=== PATIENT | male | born 1970 ===

== ENCOUNTER 2017-11-18 13:27 | Emergency (ER) | payer OTHER ==
[2017-11-18] MEDS ORDERED: LORazepam 2 MG/ML MDV IVPUSH ONE (14:10)
[2017-11-18] MEDS ORDERED: Dextrose 5%-0.9% NaCl 1,000 ML IV SCH (14:15)
--- NOTE | 2017-11-18 14:15 | EDM.PDOC ---
ED HPI GENERAL MEDICAL PROBLEM - General Source of Information: Reports: Patient History Limitations: Reports: No Limitations - History of Present Illness Onset: Today Onset Date: 11/18/17 Onset Time: 12:45 Duration: Minutes: (Reportedly the seizure lasted about 2 minutes. Again this is coming from the patient who has no recollection of what has happened to him.) Location: Reports: Generalized (Apparently expressed generalized tonic-clonic seizure activity.) Severity: Moderate Improves with: Reports: None Worsens with: Reports: None Context: Denies: Activity, Exercise, Lifting, Sick Contact, Trauma Associated Symptoms: Denies: No Other Symptoms, Confusion, Chest Pain, Cough, cough w sputum, Diaphoresis, Fever/Chills, Headaches, Loss of Appetite, Malaise , Nausea/Vomiting, Rash, Seizure, Shortness of Breath, Syncope Treatments [employer]EL[employer]: Reports: Other (see below) (None.) Right Shoulder Pain Score (Numeric/FACES): 5 - General Chief Complaint: Neuro Symptoms/Deficits Stated Complaint: [facility] Time Seen by Provider: 11/18/17 14:10 - History of Present Illness INITIAL COMMENTS - FREE TEXT/NARRATIVE: 47-year-old male presents to the ED per paramedics from [place]. Apparently he was in the workplace which she has been out for about 14 years when he suddenly fell to the floor and experienced what he was told as a grand mal convulsion that lasted about 2 minutes. Of course the patient has no recollection of what has happened to him. Ever had a seizure before. He states his right arm hurts in the proximal humerus area. He doesn't have any head or head pain. He has no neck back or rib pain. Denies any pain in his lower extremities. And states she' s been getting it good sleep. Takes no medications. He denies any alcohol or recreational drug use. He did bite his tongue and has a puncture wound to the central part of his tongue and spelled up blood for about an hour. Not lose control of his bowel or bladder. He is not known to be diabetic. He states he hasn't ate much today. Was to snack throughout the day when he is working. (Giovanni Grover) - Related Data Allergies Allergy/AdvReac Type Severity Reaction Status Date / Time ampicillin AdvReac Diarrhea Verified 11/19/17 10:26 Home Meds: Home Meds Fexofenadine/Pseudoephedrine [Nneka-D 24 Hour Tablet] 1 tab PO DAILY 11/18/17 [History] Past Medical History - Past Health History Medical/Surgical History: Denies Medical/Surgical History HEENT History: Reports: Sinusitis Social & Family History - Tobacco Use Smoking Status *Q: Never Smoker - Caffeine Use Caffeine Use: Reports: None - Recreational Drug Use Recreational Drug Use: No - Living Situation & Occupation Occupation: Employed ED ROS GENERAL - Review of Systems Review Of Systems: See Below Constitutional: Reports: Malaise, Weakness (Feels generally weak now.), Fatigue. Denies: Fever, Chills, Decreased Appetite, Weight Loss HEENT: Reports: Sinus Problem Respiratory: Reports: No Symptoms Cardiovascular: Reports: No Symptoms Endocrine: Reports: Fatigue GI/Abdominal: Reports: No Symptoms : Reports: No Symptoms Musculoskeletal: Reports: Other (Has pain in his right proximal humerus since experiencing the seizure. Believes) Skin: Reports: No Symptoms ( this where he may have hit the floor.) Neurological: Reports: Seizure (Apparently expansion new onset grand mal convulsion while at work today.) Hematologic/Lymphatic: Reports: No Symptoms Immunologic: Reports: No Symptoms - Physical Exam Exam: See Below Exam Limited By: Other (Speech is dysarthric from biting his tongue.) General Appearance: Alert, WD/WN, Anxious, Mild Distress Eye Exam: Bilateral Eye: Normal Inspection Throat/Mouth: Normal Inspection, Normal Lips, Normal Oropharynx, Evidence of Tongue Biting (He does have a puncture wound to the punch wound to the mid right side of his tongue with minimal active bleeding at present.) Head Exam: Atraumatic, Normocephalic. No: Facial Ecchymosis, Facial Swelling, Facial Tenderness Neck: Normal Inspection, Supple, Non-Tender, Full Range of Motion. No: Lymphadenopathy (L), Lymphadenopathy (R) Respiratory/Chest: No Respiratory Distress, Lungs Clear, Normal Breath Sounds, Chest Non-Tender Cardiovascular: Normal Peripheral Pulses, Regular Rate, Rhythm, No Edema, No Gallop, No Murmur, No Rub GI/Abdominal: Normal Bowel Sounds, Non-Tender, No Organomegaly, No Abnormal Bruit, No Mass, Pelvis Stable Neuro Exam (Abbreviated): Alert, Oriented, CN II-XII Intact, Normal Cognition, Normal Reflexes, No Motor/Sensory Deficits Back Exam: Normal Inspection, Full Range of Motion, Other (No abrasions or contusions to the back. Spinous processes are all normally aligned.). No: CVA Tenderness (L), CVA Tenderness (R) Extremities: Other Psychiatric: Normal Affect, Normal Mood Skin Exam: Warm, Dry, Intact, Normal Color, No Rash Course - Vital Signs Last Recorded V/S: Last Vital Signs Temp 36.2 C 11/18/17 13:33 Pulse 117 H 11/18/17 13:33 Resp 36 H 11/18/17 13:33 BP 134/79 11/18/17 13:33 Pulse Ox 93 L 11/18/17 13:33 - Orders/Labs/Meds Labs: Laboratory Tests 11/18/17 11/18/17 Range/Units 14:20 14:20 WBC 18.24 H (4.23-9.07) K/mm3 RBC 5.83 (4.63-6.08) M/mm3 Hgb 16.7 (13.7-17.5) gm/L Hct 49.1 (40.1-51.0) % MCV 84.2 (79.0-92.2) fl MCH 28.6 (25.7-32.2) pg MCHC 34.0 (32.2-35.5) g/dl RDW Std Deviation 41.3 (35.1-43.9) fL Plt Count 250 (163-337) K/mm3 MPV 9.9 (9.4-12.3) fl Neutrophils % (Manual) 81 H (40-60) % Band Neutrophils % 1 (0-10) % Lymphocytes % (Manual) 10 L (20-40) % Monocytes % (Manual) 8 (2-10) % Eosinophils % (Manual) 0 L (0.8-7.0) % Basophils % (Manual) 0 L (0.2-1.2) Platelet Estimate Adequate RBC Morph Comment Normal Sodium 141 (136-145) mEq/L Potassium 3.6 (3.5-5.1) mEq/L Chloride 105 (98-107) mEq/L Carbon Dioxide 26 (21-32) mEq/L Anion Gap 13.6 (5-15) BUN 11 (7-18) mg/dL Creatinine 1.4 H (0.7-1.3) mg/dL Est Cr Clr Drug Dosing 64.46 mL/min Estimated GFR (MDRD) 55 (>60) mL/min BUN/Creatinine Ratio 7.9 L (14-18) Glucose 135 H (74-106) mg/dL Calcium 8.9 (8.5-10.1) mg/dL Magnesium 2.8 H (1.8-2.4) mg/dl Total Bilirubin 0.3 (0.2-1.0) mg/dL AST 39 H (15-37) U/L ALT 56 (16-63) U/L Alkaline Phosphatase 87 (46-116) U/L Total Protein 7.3 (6.4-8.2) g/dl Albumin 3.8 (3.4-5.0) g/dl Globulin 3.5 gm/dL Albumin/Globulin Ratio 1.1 (1-2) Meds: Medications Discontinued Medications Generic Name Dose Route Start Last Admin Trade Name Freq PRN Reason Stop Dose Admin Dextrose/Sodium Chloride 1,000 mls @ 500 mls/hr 11/18/17 14:15 11/18/17 14:30 Dextrose 5%-Normal Saline IV 500 mls/hr ASDIRECTED LOLA Administration Lorazepam 1 mg 11/18/17 14:10 11/18/17 14:30 Ativan IVPUSH 11/18/17 14:11 1 mg ONETIME ONE Administration - Radiology Interpretation Free Text/Narrative:: 47-year-old male presents to the ED per ambulance from [place]. 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 He appeared to be confused reached out and then went down to 1 knee. He then developed tonic- clonic seizure activity while on one knee but ended up falling completely onto his back. Seizure on video tape at the restaurant indicated seizure lasts about 1 minute and 10 seconds. Patient is now alert oriented and able to provide any useful history. He has a deep puncture wound to the mid right tongue where his tooth went into. (Giovanni Grover) - Re-Assessments/Exams Free Text/Narrative Re-Assessment/Exam: 11/18/17 15:20 CT of the brain does not reveal any abnormalities mass effect or intracranial hemorrhage. X-ray of his right humerus also does not reveal any obvious fractures ,although surgical neck of the humerus is easily visible which would be atypical for a man of his age. Question whether or not there may be a nondisplaced fracture in this area. He has full unopposed range of motion of the shoulder however. Therefore pain appears to be primarily from bruising of the deltoid musculature.White count is elevated 18.24 with a left shift of 81 % neutrophils and 1% bands. Hemoglobin is 16.7 with hematocrit of 49.1 suggesting mild hemoconcentration. Sodium is 141 with potassium of 3.6. Chloride is 105 with a bicarbonate 26. And a gap is 13.6 he went is 11 with a creatinine of 1.4. GFR is 55. Glucose is 135. Calcium is 8.9. Magnesium normal at 2.8. Bilirubin is 0.3. AST is 39. Remainder of the the liver function is normal. 11/18/17 17:35: Discussed the findings with the patient. 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 I would like him followed up by Dr. Francois his primary care physician to have an MRI of his brain carried out as well as a EEG in the near future. If his MRI is okay then I think it would be prudent to allow him to return to work without anticonvulsant medication. If the EEG showed something specific then perhaps seizure medication is indicated. He will not return to work until after follow-up with Dr. Francois. I tried to reach Dr. Francois's office but there are to) the day and fax numbers available to send information to them. Try and have Dr. Maciel send this to him tomorrow morning. (Giovanni Grover) Free Text/Narrative Re-Assessment/Exam: 11/19/17 08:24 Dr Lee read the x-ray and he feels there is a surgical neck fracture partially seen within the medial humeral head. Posterior dislocation should be excluded by an axillary view. I called the patient and talked to his . He is still in pain. He is going to see his doctor today Dr Sullivan. I will fax this information to him and send the films to [facility] so he can see them (Hitesh Maciel) Departure - Departure Time of Disposition: 15:46 Condition: Fair - Departure Disposition: Home, Self-Care 01 Clinical Impression: New onset seizure, Contusion of right shoulder or upper extremity - Discharge Information Instructions: Seizure, Adult, [id number] Referrals: Jayson Sullivan MD [Primary Care Provider] - Forms: ED Department Discharge, ED Return to Work/School Form Additional Instructions: Evaluation in the emergency room today in regards to development of new onset REM or convulsion. This occurred while you were delivering pizzas to a restaurant in [facility] and luckily the ulnar of the restaurant has radial camera in the back of the restaurant which captured your seizure event.. Seizure lasted approximately a minute and 10 seconds. It appears that you struck her right shoulder when he went down to the floor and then ended up on to your back. He went to the floor from your knee first. It appears that you did not hit her head and landed on a pizza box. As identified in the ED you have a deep puncture wound to the mid aspect of your right tongue this is from a bite sandi. Tongue be quite swollen and tender for 5 days. It is okay to take Motrin 600 mg every 6 hours needed for pain relief. CT scan of the brain carried out in the emergency department was within normal limits with no intracranial bleeding or abnormalities or mass effect . X-rays of your right shoulder and humerus bone do not reveal any broken bones. It appears that you' ve contused the muscle tissue or the deltoid musculature over your shoulder. Treatment in the ED was conservative with Ativan 1 mg given intravenously to prevent any further seizure activity for 6 date hours. In light of normal lab tests and no abnormalities identified it is felt that no further treatment is indicated at this time. However further investigations are required with an MRI of your brain to rule out any other lesions that a CT scan might miss. Also he should be set up for an EEG study or brainwave scan at some point in the next few weeks. Is my suggestion that you not return to work or drive an automobile for the next 5 days until after MRI is been completed and is found to be normal. At this time we would not suggest you start taking anti-seizure medications unless you have another seizure. Activities are to be careful over the next week to 10 days as this is when you would be most vulnerable to a recurrence of a seizure. These no activities that would put her life at risk such as swimming in a pool. Suggest bathing /showering only when somebody else' s at home. Rarely it appears in the literature that Nneka-D can cause seizures in some patients. It is therefore recommended that you not take this medication any further. I will send copy of my history physical lab work and CT report to Dr. Francois at the [facility] in [place]. Please follow-up with him as planned.
--- NOTE | 2017-11-19 07:44 | CR ---
Right humerus: Two views of the right humerus were obtained. Comparison: No previous study. Fracture is identified within the medial surgical neck of the proximal humerus. No additional bony abnormality is seen. Impression: 1. Surgical neck fracture partially seen within the medial humeral head. 2. Posterior dislocation should be excluded by an axillary view. Diagnostic code #5
--- NOTE | 2017-11-19 08:52 | CT ---
Head CT Technique: Multiple axial sections through the brain were obtained. Intravenous contrast was not utilized. Comparison: No previous intracranial imaging. Findings: Ventricles along the basal cisterns and sulci over the convexities are within normal limits for the patient's age. No abnormal parenchymal densities are seen. No evidence of intracranial hemorrhage. No midline shift or mass effect is seen. Bone window settings were reviewed which show the visualized sinuses to appear clear. No acute calvarial abnormality is appreciated. Impression: 1. Nothing acute is identified on noncontrast head CT study. Diagnostic code #1 I agree with preliminary report issued by [facility] ([facility] report finalized on 11/18/17, 4:04 PM Central Time)
== END 2017-11-18 16:12 | disposition home or self-care (01) ==
LOC: JD.ED 13:27
DX: S40.011A Contusion of right shoulder, initial encounter (principal); R56.9 Unspecified convulsions; Z88.1 Allergy status to other antibiotic agents; Z79.899 Other long term (current) drug therapy; X58.XXXA Exposure to other specified factors, initial encounter
CPT/HCPCS: 36415; 70450; 73060; 80053; 83735; 85025; 96361; 96374; 99285; J2060; J7042; 99284